=== PATIENT | male | born 1990 | race Hispanic/Latino ===

== ENCOUNTER 2022-04-17 16:15 | Emergency (ER) | payer OTHER, SELFPAY ==
[2022-04-17] MEDS ORDERED: Famotidine 20 MG TAB ONE (17:12)
[2022-04-17] MEDS ORDERED: Dexamethasone 10 MG/ML VIAL ONE (17:12)
== END 2022-04-17 18:00 | disposition home or self-care (01) ==
LOC: MADERS 16:15
DX: L50.9 Urticaria, unspecified (principal)
CPT/HCPCS: 96372; 99282; J1100